=== PATIENT | female | born 1980 ===

== ENCOUNTER 2017-05-10 17:09 | Emergency (ER) | payer SELFPAY ==
[2017-05-10 17:09] VITALS: BMI 38.2
[2017-05-10 17:31] VITALS: BP 121/82; PULSE 93; RESP 16; TEMP 96.2; O2SAT 99
[2017-05-10 18:51] LABS: BASO % 0.5 % (0.0-2.0); EOS # 0.2 K/uL (0.0-0.7); EOS % 1.9 % (0.0-4.0); LYMPH # 2.8 K/uL (1.0-4.3); MEAN CELL VOLUME 85.9 fl (81.0-99.0); MEAN CORPUSCULAR HEMOGLOBIN 27.8 pg (27.0-31.0); MEAN CORPUSCULAR HGB CONC 32.3 g/dL (33.0-37.0); MEAN PLATELET VOLUME 9.5 fl (7.2-11.7); MONO # 0.5 K/uL (0.0-0.8); MONO % 5.9 % (0.0-10.0); NEUT % 58.7 % (50.0-75.0); NRBC % 0.1 % (0.0-0.0); WHITE BLOOD COUNT 8.5 K/uL (4.8-10.8)
[2017-05-10 19:01] LABS: ALB/GLOB RATIO 1.3 (1.0-2.1); ALKALINE PHOSPHATASE 70 U/L (38-126); ALT/SGPT 35 U/L (9-52); AST/SGOT 20 U/L (14-36); BILIRUBIN,TOTAL 0.3 mg/dl (0.2-1.3); BLOOD UREA NITROGEN 10 mg/dl (7-17); CALCIUM 8.8 mg/dL (8.4-10.2); CARBON DIOXIDE 25 mmol/L (22-30); CHLORIDE 105 mmol/L (98-107); GFR AFRICAN-AMERICAN > 60; GLUCOSE,RANDOM 94 mg/dL (65-105); POTASSIUM 3.8 MMOL/L (3.6-5.0); SODIUM 140 mmol/l (132-148); TOTAL PROTEIN 7.5 G/DL (6.3-8.2)
[2017-05-10 19:04] LABS: RBC URINE 4 /hpf (0-3); URINE BACTERIA RARE (<OCC); URINE BILIRUBIN SMALL (NEGATIVE); URINE BLOOD NEGATIVE (NEGATIVE); URINE CALCIUM OXALATE CRYSTALS OCC /hpf (<OCC); URINE COLOR AMBER (YELLOW); URINE GLUCOSE (UA) NEG (Normal); URINE KETONE TRACE mg/dL (NEGATIVE); URINE LEUKOCYTE ESTERASE NEG Leu/uL (Negative); URINE PROTEIN 30 mg/dL (NEGATIVE); WBC URINE 3 /hpf (0-5)
--- NOTE | 2017-05-10 19:39 | ED PDOC ---
HPI: General Adult Time Seen by Provider: 05/10/17 17:34 Chief Complaint (Nursing): Abdominal Pain History Per: Patient Additional Complaint(s): Pt. states for the past 2-3 days she's had L sided lower back pain and today she developed pelvic pain radiating to the back. Pt. states 2 weeks ago she had her menstruation which was heavier than usual but vaginal bleeding has since stopped. Denies N/V/D, fever, dysuria, hematuria, vaginal discharge, incontinence, saddle paresthesias. Past Medical History Reviewed: Historical Data, Nursing Documentation, Vital Signs Vital Signs: Last Vital Signs Temp 96.2 F L 05/10/17 17:28 Pulse 93 H 05/10/17 17:28 Resp 16 05/10/17 17:28 BP 121/82 05/10/17 17:28 Pulse Ox 99 05/10/17 17:28 - Medical History PMH: Asthma, Back Problems - Surgical History Surgical History: - Family History Family History: States: No Known Family Hx - Home Medications Home Medications: Ambulatory Orders Medication Instructions Recorded Pnv59/Iron,Carb,Fum/FA/Dss/Dha 1 tab PO DAILY 05/06/16 [Citranatal Kingsley Capsule] - Allergies Allergies/Adverse Reactions: Allergies Allergy/AdvReac Type Severity Reaction Status Date / Time No Known Allergies Allergy Verified 05/10/17 17:27 Review of Systems ROS Statement: Except As Marked, All Systems Reviewed And Found Negative Genitourinary Female: Positive for: Pelvic Pain Musculoskeletal: Positive for: Back Pain Physical Exam - Reviewed Nursing Documentation Reviewed: Yes Vital Signs Reviewed: Yes - Physical Exam Appears: Positive for: Well, Non-toxic, No Acute Distress Head Exam: Positive for: ATRAUMATIC, NORMAL INSPECTION, NORMOCEPHALIC Skin: Positive for: Normal Color, Warm. Negative for: Rash Eye Exam: Positive for: EOMI, Normal appearance, PERRL ENT: Positive for: Normal ENT Inspection Neck: Positive for: Normal, Painless ROM Cardiovascular/Chest: Positive for: Regular Rate, Rhythm Respiratory: Positive for: CNT, Normal Breath Sounds Gastrointestinal/Abdominal: Positive for: Normal Exam, Bowel Sounds, Soft. Negative for: Tenderness Back: Positive for: Normal Inspection. Negative for: L CVA Tenderness, R CVA Tenderness Extremity: Positive for: Normal ROM Neurologic/Psych: Positive for: Alert, Oriented. Negative for: Aphasia, Facial Droop - Laboratory Results Result Diagrams: 05/10/17 18:45 05/10/17 18:45 - ECG O2 Sat by Pulse Oximetry: 99 - Progress ED Course And Treament: Labs ordered. Pelvic US ordered. Toradol 30mg IV ordered. Disposition - Clinical Impression Clinical Impression: Pelvic pain - Patient ED Disposition Is Patient to be Admitted: Transfer of Care (Signed out to Roger WALLS pending US results and final disposition.) - Disposition Disposition Time: 19:40 Condition: STABLE
[2017-05-10] MEDS ORDERED: Oxycodone/Acetaminophen 5/325 mg Tab PO STA (21:07)
[2017-05-10] MEDS ORDERED: Iohexol 300 100 ML IJ ONE (21:39)
--- NOTE | 2017-05-10 22:05 | ED PDOC ---
- Laboratory Results Result Diagrams: 05/10/17 18:45 05/10/17 18:45 - ECG O2 Sat by Pulse Oximetry: 99 - Progress ED Course And Treament: 36 yo F in Ed for eval b/l pelvic pain x1d without vaginal bleeding/discharge nausea or vomiting denies fever. pt signed out to magazine writer pending US results and pain control 05/10/17 05/10/17 05/10/17 18:45 18:45 18:42 WBC 8.5 RBC 4.78 Hgb 13.3 Hct 41.0 MCV 85.9 D MCH 27.8 MCHC 32.3 L RDW 14.0 Plt Count 232 MPV 9.5 Neut % (Auto) 58.7 Lymph % (Auto) 33.0 [place] % (Auto) 5.9 Eos % (Auto) 1.9 Baso % (Auto) 0.5 Neut # 5.0 Lymph # 2.8 [place] # 0.5 Eos # 0.2 Baso # 0.0 Sodium 140 Potassium 3.8 Chloride 105 Carbon Dioxide 25 Anion Gap 14 BUN 10 Creatinine 0.7 Est GFR ( Amer) > 60 Est GFR (Non-Af Amer) > 60 Random Glucose 94 Calcium 8.8 Total Bilirubin 0.3 AST 20 ALT 35 Alkaline Phosphatase 70 Total Protein 7.5 Albumin 4.2 Globulin 3.3 Albumin/Globulin Ratio 1.3 Urine Color Becca Urine Clarity Cloudy Urine pH 5.0 Ur Specific [place] 1.033 H Urine Protein 30 Urine Glucose (UA) Neg Urine Ketones Trace Urine Blood Negative Urine Nitrate Negative Urine Bilirubin Small Urine Urobilinogen 4.0 H Ur Leukocyte Esterase Neg Urine RBC (Auto) 4 H Urine Microscopic WBC 3 Ur Squamous Epith Cells 12 H Calcium Oxalate Crystal Occ H Urine Bacteria Rare Re-evaluation Time: 22:05 Condition: Re-examined (pain not controlled-given percocet for pain. Pt re- examined with CVA tenderness will do cT scan r/o stone. UA shows bilirubin) Medical Decision Making Medical Decision Making: ct scan: FINDINGS: Lower thorax: <No significant pleural effusions.> ABDOMEN: Liver: Unremarkable. No mass. Gallbladder and bile ducts: Unremarkable. No calcified stones. No ductal dilation. Pancreas: Unremarkable. No ductal dilation. Spleen: Unremarkable. No splenomegaly. Adrenals: Unremarkable. No mass. Kidneys and ureters: Unremarkable. No solid mass. No hydronephrosis. Stomach and bowel: Unremarkable. No dilated bowel loops. Appendix: No findings to suggest acute appendicitis. PELVIS: Bladder: Unremarkable. Reproductive: Unremarkable as visualized. ABDOMEN and PELVIS: Intraperitoneal space: Unremarkable. No free air. No significant fluid collection. Bones/joints: No acute fracture. No dislocation. Soft tissues: Unremarkable. Vasculature: Unremarkable. No abdominal aortic aneurysm. Lymph nodes: Unremarkable. No enlarged lymph nodes. IMPRESSION: No findings to suggest acute appendicitis. Thank you for allowing us to participate in the care of your patient. Dictated and Authenticated by: Arturo Perales MD 05/10/2017 10:04 PM Eastern Time ([place] & [place]) Pt denies vaginal d/c. Vital Signs - 24 hr 05/10/17 05/10/17 05/10/17 17:28 19:41 22:06 Temperature 96.2 F L Pulse Rate 93 H Respiratory 16 Rate Blood Pressure 121/82 O2 Sat by Pulse 99 99 99 Oximetry PT advised to take motrin for pain. pt states she is not concered about sTI at this time however advised to f.u with obgyn for further eval. Disposition - Clinical Impression Clinical Impression: Pelvic pain - POA Present On Arrival: None - Disposition Disposition: Routine/Home Disposition Time: 22:11 Condition: STABLE Prescriptions: Ibuprofen [Motrin] 400 mg PO Q6 #30 tab Instructions: Pelvic Pain in Women (ED) Forms: [employer] (Frisian) Progress Note - Review of Symptoms General: No: Chills, Night Sweats, Fatigue, Malaise, Appetite, Other HEENT: No: Head Aches, Visual Changes, Eye Pain, Ear Pain, Dysphasia, Sinus Congestion, Post Nasal Drip, Sore Throat, Other Pulmonary: No: Dyspnea, Cough, Pleuritic Chest Pain, Other Cardiovascular: No: Chest Pain, Palpitations, Orthopnea, Paroxysmal Noc. Dyspnea , Edema, Light Headedness, Other Gastrointestinal: Positive for: Abdominal Pain. No: Nausea, Vomiting, Diarrhea , Constipation, Melena, Hematochezia, Other Genitourinary: No: Dysuria, Frequency, Incontinence, Hematuria, Retention, Other Musculoskeletal: No: Muscle Pain, Joint Pain, Other Neurological: No: Weakness, Numbness, Incoordination, Change in speech, Confusion, Seizures, Other
--- NOTE | 2017-05-11 08:57 | CT ---
PROCEDURE: CT Abdomen and Pelvis with contrast HISTORY: b/l pelvic pain worse on right >left COMPARISON: May 10, 2017. Pelvic ultrasound. Bowel bowel TECHNIQUE: Contrast dose: 95 cc Omnipaque 300. Radiation dose: Total exam DLP = 993.08 mGy-cm. This CT exam was performed using one or more of the following dose reduction techniques: Automated exposure control, adjustment of the mA and/or kV according to patient size, and/or use of iterative reconstruction technique. FINDINGS: LOWER THORAX: Unremarkable. LIVER: Unremarkable. No gross lesion or ductal dilatation. GALLBLADDER AND BILE DUCTS: Unremarkable. PANCREAS: Unremarkable. No gross lesion or ductal dilatation. SPLEEN: Unremarkable. ADRENALS: Unremarkable. No mass. KIDNEYS AND URETERS: Unremarkable. No hydronephrosis. No solid mass. VASCULATURE: Unremarkable. No aortic aneurysm. BOWEL: Unremarkable. No obstruction. No gross mural thickening. APPENDIX: Normal appendix. PERITONEUM: Unremarkable. No free fluid. No free air. LYMPH NODES: Unremarkable. No enlarged lymph nodes. BLADDER: Unremarkable. REPRODUCTIVE: Unremarkable. BONES: No acute fracture. OTHER FINDINGS: None. IMPRESSION: Unremarkable contrast enhanced CT of the abdomen and pelvis.No acute findings related to/accounting for the clinical presentation. Concordant results (preliminary interpretation) provided by [email or web address]. Procedure Completed: 21:46 Preliminary ([facility]) Report: Dictated and Authenticated: 22:04 Final Interpretation: 08:55. May 11, 2017.
--- NOTE | 2017-05-11 10:06 | US ---
HISTORY: Pelvic pain. Menstrual status: LMP LMP 04/25/2017. COMPARISON: 08/22/2016 pelvic ultrasound TECHNIQUE: Transabdominal only. Real-time technique with 2D, duplex and color Doppler FINDINGS: UTERUS: Measures 3.2 x 5.1 x 8.2 cm. Normal in size and appearance. No fibroid or other mass lesion seen. ENDOMETRIUM: Measures 6.3 mm in diameter. No ultrasound findings to suggest gestational sac, fluid, debris, mass or polyp or other pathologic process within the endometrium. CERVIX: No cervical abnormality identified. RIGHT OVARY: Measures 1.6 x 2.5 x 3.0 cm. No solid mass. Normal flow. LEFT OVARY: Measures 2.0 x 2.4 x 2.7 cm. No solid mass. Normal flow. FREE FLUID: No significant free fluid noted. OTHER FINDINGS: None. IMPRESSION: Unremarkable pelvic ultrasound. Concordant results (preliminary interpretation) provided by [facility]. Procedure Completed: 19:51 Preliminary ([facility]) Report: Dictated and Authenticated: 20:17. Final Interpretation: 10:05. May 11, 2017.
== END 2017-05-10 22:45 | disposition home or self-care (01) ==
LOC: H.ER 17:09
DX: R10.2 Pelvic and perineal pain (principal)
CPT/HCPCS: 74177; 76856; 80053; 81003; 81025; 85025; 96374; 99282; J1885; Q9967

== ENCOUNTER 2017-09-06 19:37 | Emergency (ER) | payer SELFPAY ==
[2017-09-06 19:37] VITALS: BMI 38.2
[2017-09-06 20:33] VITALS: BP 109/75; PULSE 78; RESP 18; TEMP 98.3; O2SAT 99
== END 2017-09-06 22:45 | disposition left against medical advice (07) ==
LOC: H.ER 19:37
DX: Z02.89 Encounter for other administrative examinations (principal)

== ENCOUNTER 2017-09-07 08:35 | Emergency (ER) | payer OTHER ==
[2017-09-07 08:35] VITALS: BMI 38.2
[2017-09-07 08:45] VITALS: TEMP 99.7
--- NOTE | 2017-09-07 09:37 | ED PDOC ---
HPI: Back Time Seen by Provider: 09/07/17 09:20 Chief Complaint (Nursing): Back Pain Chief Complaint (Provider): Low back pain History Per: Patient History/Exam Limitations: no limitations Onset/Duration Of Symptoms: Days (2) Current Symptoms Are (Timing): Still Present Additional Complaint(s): Pt reports L lower back pain X 2 days, started while she was sleeping, worse with movement, not relieved with Naprosyn and Advil. Denies trauma, paresthesias, weakness, incontinence, fever, urinary symptoms. Past Medical History Reviewed: Nursing Documentation Vital Signs: Last Vital Signs Temp 99.7 F H 09/07/17 08:44 Pulse 77 09/07/17 08:44 Resp 19 09/07/17 08:44 BP 107/64 09/07/17 08:44 Pulse Ox 99 09/07/17 08:44 - Medical History PMH: Asthma, Back Problems - Surgical History Surgical History: - Family History Family History: States: Unknown Family Hx - Social History Current smoker - smoking cessation education provided: No - Home Medications Home Medications: Ambulatory Orders Medication Instructions Recorded Naproxen [Naprosyn] 500 mg PO BID PRN #15 tablet 09/07/17 oxyCODONE/Acetaminophen [Percocet 1 tab PO Q6H PRN #10 tab 09/07/17 5/325 mg Tab] - Allergies Allergies/Adverse Reactions: Allergies Allergy/AdvReac Type Severity Reaction Status Date / Time No Known Allergies Allergy Verified 09/07/17 08:54 Review of Systems Constitutional: Negative for: Fever, Chills Cardiovascular: Negative for: Chest Pain Respiratory: Negative for: Cough, Shortness of Breath Gastrointestinal: Negative for: Nausea, Vomiting, Abdominal Pain, Diarrhea Genitourinary Female: Negative for: Dysuria, Hematuria Musculoskeletal: Positive for: Back Pain. Negative for: Neck Pain, Leg Pain Skin: Negative for: Rash, Lesions Neurological: Negative for: Weakness, Numbness, Headache, Dizziness Physical Exam - Reviewed Nursing Documentation Reviewed: Yes Vital Signs Reviewed: Yes - Physical Exam Appears: Positive for: Well, No Acute Distress Skin: Positive for: Normal Color, Warm, Dry Cardiovascular/Chest: Positive for: Regular Rate, Rhythm Respiratory: Positive for: Normal Breath Sounds Back: Positive for: Other (TTP L lumbar paraspinal). Negative for: L CVA Tenderness, R CVA Tenderness, Vertebral Tenderness, Decreased ROM, Muscle Spasm Extremity: Positive for: Normal ROM Neurologic/Psych: Positive for: Alert, Oriented. Negative for: Motor/Sensory Deficits - ECG O2 Sat by Pulse Oximetry: 99 Pulse Ox Interpretation: Normal - Progress Re-evaluation Time: 13:00 Condition: Improved Medical Decision Making Medical Decision Makin yo female with L lower bakc pain. - UA - XR lumbar spine Accession No. : [id number] Patient Name / ID : RAMO PENG / [id number] Exam Date : 09/07/2017 09:30:56 ( Approved ) Study Comment : Sex / Age : F / 36Y Creator : Warren Jimenez MD Dictator : Warren Jimenez MD Commercial Loan Processor : Conference Planner : Warren Jimenez MD Approver2 : Report Date : 09/07/2017 11:29:47 My Comment : PROCEDURE: Radiographs of the Lumbar Spine. HISTORY: Left lower back Pain. No history of recent/ related trauma provided COMPARISON: 03/20/2013 FINDINGS: BONES: Normal alignment. No listhesis. No fracture. DISC SPACES: Unremarkable. OTHER FINDINGS: None. IMPRESSION: Unremarkable radiographs of the lumbar spine.No significant interval change compared to the prior examination(s). Disposition - Clinical Impression Clinical Impression: Low back pain - Disposition Disposition: Routine/Home Disposition Time: 12:36 Condition: IMPROVED Additional Instructions: FOLLOW-UP WITH PMD WITHIN 2 DAYS FOR REEVALUATION. Prescriptions: Naproxen [Naprosyn] 500 mg PO BID PRN #15 tablet PRN Reason: Pain, Moderate (4-7) oxyCODONE/Acetaminophen [Percocet 5/325 mg Tab] 1 tab PO Q6H PRN #10 tab PRN Reason: Pain, Severe (8-10) Instructions: Low Back Pain in Adults Forms: [employer] (Arabic)
--- NOTE | 2017-09-07 11:31 | RAD ---
PROCEDURE: Radiographs of the Lumbar Spine. HISTORY: Left lower back Pain. No history of recent/ related trauma provided COMPARISON: 03/20/2013 FINDINGS: BONES: Normal alignment. No listhesis. No fracture. DISC SPACES: Unremarkable. OTHER FINDINGS: None. IMPRESSION: Unremarkable radiographs of the lumbar spine.No significant interval change compared to the prior examination(s).
[2017-09-07 14:19] VITALS: BP 105/67; PULSE 65; RESP 14
[2017-09-07 16:57] VITALS: O2SAT 99
== END 2017-09-07 14:05 | disposition home or self-care (01) ==
LOC: H.ER 08:35
DX: M54.5 Low back pain (principal); J45.909 Unspecified asthma, uncomplicated
CPT/HCPCS: 72114; 81025; 96372; 99283; J1885; J2270

== ENCOUNTER 2018-06-29 15:21 | Emergency (ER) | payer OTHER ==
[2018-06-29 15:21] VITALS: BMI 38.2
[2018-06-29 15:31] VITALS: BP 130/80; PULSE 89; RESP 16; TEMP 98.5; O2SAT 99
--- NOTE | 2018-06-29 15:53 | ED PDOC ---
Upper Extremity Pain/Injury Time Seen by Provider: 06/29/18 15:37 Chief Complaint (Nursing): Upper Extremity Problem/Injury Chief Complaint (Provider): Upper Extremity Problem/Injury History Per: Patient History/Exam Limitations: no limitations Onset/Duration Of Symptoms: Other (approximately six months) Current Symptoms Are (Timing): Still Present Quality: Sharp Exacerbating Factor(s): Movement Additional Complaint(s): Patient is a 37 y/o female with a past medical history of asthma and back problems who presents to the ED for evaluation of left shoulder pain ongoing for approximately six months. Patient describes the pain as sharp and notes that it radiates down her left arm. Patient reports the pain worsens with movement, especially with raising her arm. Patient tried over the counter medications but has had no relief, none were taken today. Patient states the pain sometimes wakes her up from sleep. Patient denies any recent falls or trauma. Patient indicates she is right hand dominant. No other complaints. PCP: None Provided Past Medical History Reviewed: Historical Data, Nursing Documentation, Vital Signs Vital Signs: Last Vital Signs Temp 98.5 F 06/29/18 15:29 Pulse 89 06/29/18 15:29 Resp 16 06/29/18 15:29 BP 130/80 06/29/18 15:29 Pulse Ox 99 06/29/18 15:29 - Medical History PMH: Asthma, Back Problems - Surgical History Surgical History: (x2) - Family History Family History: States: Unknown Family Hx - Social History Current smoker - smoking cessation education provided: Yes (5-6 cigarretes a day) Alcohol: None Drugs: Denies - Home Medications Home Medications: Ambulatory Orders Medication Instructions Recorded Naproxen [Naprosyn] 500 mg PO BID PRN #15 tablet 09/07/17 oxyCODONE/Acetaminophen [Percocet 1 tab PO Q6H PRN #10 tab 09/07/17 5/325 mg Tab] Cyclobenzaprine [Cyclobenzaprine 10 mg PO Q8 PRN #12 tab 06/29/18 HCl] RX: Naproxen 500 mg PO BID PRN #20 tab 06/29/18 - Allergies Allergies/Adverse Reactions: Allergies Allergy/AdvReac Type Severity Reaction Status Date / Time No Known Allergies Allergy Verified 06/29/18 15:29 Review of Systems ROS Statement: Except As Marked, All Systems Reviewed And Found Negative Musculoskeletal: Positive for: Shoulder Pain (left), Arm Pain (left) Physical Exam - Reviewed Nursing Documentation Reviewed: Yes Vital Signs Reviewed: Yes - Physical Exam Comments: GENERAL APPEARANCE: Patient is awake, alert, oriented x 3, resting comfortably. SKIN: Warm, dry; (-) cyanosis. ENMT: Mucous membranes moist. Airway patent, (-) stridor. NECK: Supple, FROM CHEST AND RESPIRATORY: (-) rales, (-) rhonchi, (-) wheezes; breath sounds equal bilaterally. Respirations even and nonlabored. HEART AND CARDIOVASCULAR: (-) irregularity EXTREMITIES: Decreased ROM of left shoulder. (+) tenderness to posterior left shoulder (+) spasm to the left trapezius (-) crepitus, erythema, or effusion (-) deformity (+) distal pulses. Full ROM to remainder of upper extremity with no tenderness. Cap refill and sensation intact. NEURO AND PSYCH: Mental status as above; (-) focal findings. Gait: steady. Speech: clear. (-) facial asymmetry (-) aphasia - ECG O2 Sat by Pulse Oximetry: 99 (RA) Pulse Ox Interpretation: Normal Medical Decision Making Medical Decision Making: Time: 1545 Impression: Acute Shoulder Pain Plan: Flexeril 10 mg PO (not driving home) Toradol 30 mg IM Shoulder Left [Rad] Re-evaluation Time: 1640 Shoulder X-Ray FINDINGS: BONES: Normal. No fracture. JOINTS: Normal. Glenohumeral and acromioclavicular joints preserved. No osteoarthritis. SOFT TISSUES: Normal. OTHER FINDINGS: None. IMPRESSION: Normal radiographs of the left shoulder. On re-evaluation, patient reports improvement of symptoms. On exam, patient remains AAOx3, in no acute distress. Vitals stable. Lab/ Diagnostic results d/w the patient in great detail. Diagnosis of acute shoulder pain d/w the patient. Based on history, exam and diagnostic results, plan will be for outpatient follow up with clinic/ortho. Patient instructed to follow-up with pmd / referral provided / the clinic in 1- 2 days without fail. Advised to take medication as prescribed. Return to the emergency room at any time for any new or worsening symptoms. Patient states she fully agrees with and understands discharge instructions. States that she agrees with the plan and disposition. Verbalized and repeated discharge instructions and plan. I have given the patient opportunity to ask any additional questions. Scribe Attestation: Documented by Paulino Maya, acting as a scribe for HARI Gonzalez. Provider Scribe Attestation: All medical record entries made by the Scribe were at my direction and personally dictated by me. I have reviewed the chart and agree that the record accurately reflects my personal performance of the history, physical exam, medical decision making, and the department course for this patient. I have also personally directed, reviewed, and agree with the discharge instructions and disposition. Disposition - Clinical Impression Clinical Impression: Acute pain of left shoulder, Muscle spasm of left shoulder - Patient ED Disposition Is Patient to be Admitted: No Counseled Patient/Family Regarding: Studies Performed, Diagnosis, Need For Followup, Rx Given - Disposition Referrals: [facility] [Outside] Pedro Topete III, MD [Staff Provider] - Disposition: Routine/Home Disposition Time: 16:40 Condition: STABLE Additional Instructions: The emergency medical care you received today was directed at your acute symptoms. If you were prescribed any medication, please fill it and take as directed. It may take several days for your symptoms to resolve. Return to the Emergency Department if your symptoms worsen, do not improve, or if you have any other problems. Please contact your doctor in 2 days for re-evaluation and follow up / or call one of the physicians/clinics you have been referred to that are listed on the Patient Visit Information form that is included in your discharge packet. Bring any paperwork you were given at discharge with you along with any medications you are taking to your follow up visit. Our treatment cannot replace ongoing medical care by a primary care provider (PCP) outside of the emergency department. Prescriptions: Cyclobenzaprine [Cyclobenzaprine HCl] 10 mg PO Q8 PRN #12 tab PRN Reason: Muscle Spasm RX: Naproxen 500 mg PO BID PRN #20 tab PRN Reason: Pain, Moderate (4-7) Instructions: Shoulder Sprain, Muscle Spasms (DC), Shoulder Pain (DC) Forms: [facility] (Indonesian) Print Language: UPPER SORBIAN - POA Present On Arrival: None
--- NOTE | 2018-06-29 16:42 | RAD ---
Date of service: 06/29/2018 PROCEDURE: Radiographs of the Left Shoulder HISTORY: joint pain x 6 months, worsening; no trauma COMPARISON: No prior. FINDINGS: BONES: Normal. No fracture. JOINTS: Normal. Glenohumeral and acromioclavicular joints preserved. No osteoarthritis. SOFT TISSUES: Normal. OTHER FINDINGS: None. IMPRESSION: Normal radiographs of the left shoulder.
== END 2018-06-29 17:08 | disposition home or self-care (01) ==
LOC: H.ER 15:21
DX: M25.512 Pain in left shoulder (principal)
CPT/HCPCS: 73030; 81025; 96372; 99282; J1885